=== PATIENT | male | born 1940 | race Caucasian/White ===

== ENCOUNTER 2016-07-20 11:46 | Inpatient (IN) | payer OTHER ==
[~2016-07-20] VITALS: Ht 177.8 cm; Wt 93.5 kg
[~2016-07-20 11:46] MED LIST: ACETAMINOPHEN325 M1 PO; ALEVE220 MG PO; AMBIEN5 MG PO; AMIKACIN (500 MG/2 M IV; ANTIOXIDANT VI1 EACH PO; AQUAPHOR OINTM105 GM TP; ASPIR 8181 M1 PO; ASPIR-LOW81 MG PO; AUGMENTIN875 MG PO; AZATHIOPRINE50 MG PO; BENADRYL50 MG PO; BUSPAR10 MG PO; BUSPIRONE HCL10 MG PO; Buspar PO; CALCI-CHEW500 MG PO; CALCIUM500 M4 PO; CELEXA20 MG PO; CEROVITE ADVAN1 EACH PO; CITALOPRAM HBR10 MG PO; CITALOPRAM HBR20 MG PO; COLACE100 MG PO; COUMADIN1 MG PO; COUMADIN2.5 MG PO; COUMADIN3 MG PO; COUMADIN4 MG PO; Colace PO; DAILY VITE1 EAC1 PO; DEPAKOTE250 MG PO; DEPAKOTE500 MG PO; DESYREL100 MG PO; DIAZEPAM5 MG PO; DILAUDID1 MG/ML PO; DILAUDID2 MG PO; DILAUDID4 MG PO; DUONEB 2.5-0.5 M3 ML AEROSOL; DUONEB 2.5-0.5 M3 ML IH; FERROUS SULFAT325 MG PO; FISH OIL 1,2001 EAC4 PO; FLEET MINERAL133 ML PR; FLEXERIL10 MG PO; FLOMAX0.4 MG PO; FLORASTOR250 MG PO; FUROSEMIDE20 MG PO; GABAPENTIN100 MG PO; GEODON40 MG PO; GUAIFENESI100 MG/5 M PO; HYDROCODON-ACE1 EAC7 PO; HYDROMORPHONE HC2 MG PO; IMURAN50 MG PO; IRON325 M1 PO; IRON325 MG PO; KEFLEX500 MG PO; KLOR-CON 1010 ME1 PO; KLOR-CON M2020 MEQ PO; KLOR-CON20 MEQ PO; LEVAQUIN500 MG PO; LISINOPRIL5 MG PO; LOPRESSOR25 MG PO; LORAZEPAM0.5 MG PO; MEN'S MULTI-VI1 EACH PO; METOPROLOL TART25 MG PO; MILK OF MAGN PO; MULTIVITAMIN1 EAC2 PO; MUPIROCIN22 GM TP; Milk Of Magnesia,MOM PO; NOVOLOG PE100 UNITS/ SC; NYSTATIN15 GM TP; OMEGA 3-6-91200 MG PO; OMEGA-31000 M1 PO; ONGLYZA2.5 MG PO; ORA RELIEF177 ML MM; OS-CAL 500+D T1 EAC1 PO; OYSTER SHELL W1 EACH PO; PANTOPRAZOLE SO40 MG PO; POTASSIUM CHLO20 ME1 PO; PREDNISONE10 MG PO; PREDNISONE20 MG PO; PREDNISONE5 MG PO; PREDNISONE50 MG PO; PRINIVIL5 MG PO; PROTONIX20 MG PO; PROTONIX40 MG PO; QUETIAPINE FUMA50 MG PO; ROCEPHIN1000 MG IM; SEA-OMEGA 30 C1 EACH PO; SENNA LAXATIVE1 EACH PO; SEROQUEL100 MG PO; SEROQUEL50 MG PO; SIMVASTATIN40 MG PO; SORE THROAT LO1 EAC3 MM; TRAZODONE HCL100 MG PO; TRAZODONE HCL50 MG PO; TYLENOL REGULA325 MG PO; Tums,OsCal PO; VALIUM5 MG PO; Vicodin,Norco 5/325 PO; WARFARIN SODIUM1 MG PO; ZOLPIDEM TARTRAT5 MG PO
[2016-07-20 12:36] LABS: BASE EXCESS 2.1 mEq/L (-3 to +3); BICARBONATE 28.2 mEq/L (22-26); CARBOXY HGB 1.4 % (0-5); METHEMOGLOBIN 0.5 % (0-1.5); PCO2 50 mm Hg (35-45); PO2 116 mm Hg (80-100); pH 7.36 (7.35-7.45)
[2016-07-20 12:37] LABS: COMMENTS - BLOOD GASES A+C=; DEVICE CONT NEB; O2 FLOW 8 L/MIN; SITE LRA; TOTAL RESP RATE 18 resp/min
[2016-07-20 12:38] LABS: EOSINOPHIL COUNT 0.1 K/uL (0-0.3); HEMATOCRIT 36.7 % (38.0-50.0); IMMATURE GRANULOCYTE (%) 0.5 % (0.0-0.7); IMMATURE GRANULOCYTE COUNT 0.1 K/uL; INSTRUMENT ABS NEUTROPHIL CT 7.9 K/uL; LYMPHOCYTE COUNT 0.8 K/uL (1.0-2.8); MCHC 31.1 G/DL (30.0-36.0); MCV 99.7 FL (86-99); MEAN PLAT.VOLUME 9.1 uM^3 (9.0-12.4); MONOCYTE COUNT 0.4 K/uL (0-0.8); NEUTROPHIL (%) 85.6 % (45-76); NEUTROPHIL COUNT 7.9 K/uL (1.8-6.4); PLATELET COUNT 246 K/uL (156-360); RBC DIS.WIDTH-CV 15.3 % (11.8-14.6); RBC DIS.WIDTH-SD 56.3 % (39-53); RED BLOOD COUNT 3.68 M/uL (4.00-5.50); WHITE BLOOD COUNT 9.2 K/uL (4.1-10.2)
[2016-07-20 12:46] LABS: CHLORIDE 106 mEq/L (99-109); POTASSIUM 4.9 mEq/L (3.7-5.4); SODIUM 142 mEq/L (136-147)
[2016-07-20 12:47] LABS: INTER. NORMALIZED RATIO 1.4; PROTHROMBIN TIME 14.3 (9.2-11.2); PTT 39.7 (25-32)
[2016-07-20 12:59] LABS: TROP-I INTERPRETATION NEGATIVE; TROPONIN-I < 0.01 ng/mL (0.0-0.30)
[2016-07-20 13:02] LABS: TOTAL BILIRUBIN 0.4 mg/dL (0.0-1.0)
[2016-07-20 13:11] LABS: GLUCOSE 123 mg/dL (70-99)
[2016-07-20 13:13] LABS: ANION GAP 11 MEQ/L (2-14)
[2016-07-20 13:15] LABS: ALKALINE PHOSPHATASE 39 IU/L (3-129); GFR ESTIMATE (CALCULATED) 57 mL/min/
[2016-07-20 13:16] LABS: UREA NITROGEN (BUN) 27 mg/dL (9-23)
[2016-07-20] MEDS ORDERED: DELTASONE20 M1 PO (13:48)
[2016-07-20] MEDS ORDERED: TAMIFLU75 MG PO (13:50)
[2016-07-20] MEDS ORDERED: TRESIBA FL100 UNIT/1 SC (13:52)
[2016-07-20] MEDS ORDERED: XARELTO20 MG PO (13:52)
[2016-07-20] MEDS ORDERED: GEODON60 MG PO (13:54)
[2016-07-20] MEDS ORDERED: LAMOTRIGINE25 MG PO (13:58)
[2016-07-20 14:02] LABS: LIPASE 34 U/L (1.0-51.0)
[2016-07-20] MEDS ORDERED: NOVOLOG PE100 UNITS/ SC (14:03)
[2016-07-20] MEDS ORDERED: DILAUDID2 MG PO (14:06)
[2016-07-20] MEDS ORDERED: FLEET ENEMA-AD118 ML PR (14:08)
[2016-07-20 14:36] LABS: AMPHETAMINE NEGATIVE (500 ng/mL); BARBITURATES NEGATIVE (200 ng/mL); BENZODIAZEPINES NEGATIVE (150 ng/mL); COCAINE NEGATIVE (150 ng/mL); INTERNAL CONTROLS VALID? YES; METHADONE NEGATIVE (200 ng/mL); METHAMPHETAMINE NEGATIVE (500 ng/mL); OPIATES (MORPHINE) PRESUMPTIVE POSITIVE (100 ng/mL); OXYCODONE NEGATIVE (100 ng/mL); PHENCYCLIDINE NEGATIVE (25 ng/mL); PROPOXYPHENE NEGATIVE (300 ng/mL); THC CANNABINOIDS NEGATIVE (50 ng/mL); TRICYCLIC ANTIDEPRESSANTS NEGATIVE (300 ng/mL)
[2016-07-20 14:37] LABS: ADD MEDTOX COMMENT Y
[2016-07-20 15:16] LABS: OPIATES QUANTITATIVE VALUE 0 NG/ML
[2016-07-20 15:41] LABS: ADD MIUA? YES; BILIRUBIN NEGATIVE; BLOOD SMALL; COLOR YELLOW ((YELLOW)); GLUCOSE (STRIP) NEGATIVE; KETONES NEGATIVE; LEUKOCYTES NEGATIVE; NITRITE NEGATIVE; PROTEIN (STRIP) NEGATIVE; SPECIFIC GRAVITY 1.006 (1.000-1.030); UROBILINOGEN 0.2 MG/DL (0.2-1.0)
[2016-07-20 15:47] LABS: BACTERIA NONE SEEN /HPF; EPITHELIAL CELLS NONE SEEN /HPF; MUCUS NONE SEEN /LPF; RED BLOOD CELLS 0-5 /HPF (0-5); UCUL ADDED? NO; WHITE BLOOD CELLS 0-5 /HPF (0-5)
[2016-07-20 17:43] VITALS: BP 102/53
[2016-07-20 17:44] VITALS: BP 102/53
[2016-07-20 19:00] VITALS: BP 96/54
[2016-07-20 23:15] VITALS: BP 96/52
[2016-07-21 03:15] VITALS: BP 138/65
[2016-07-21 06:00] LABS: EOSINOPHIL (%) 0 % (0-5); HEMATOCRIT 33.5 % (38.0-50.0); IMMATURE GRANULOCYTE (%) 0.5 % (0.0-0.7); INSTRUMENT ABS NEUTROPHIL CT 7.7 K/uL; LYMPHOCYTE COUNT 0.6 K/uL (1.0-2.8); MCH 31.4 PG (29.0-34.0); MCHC 31.9 G/DL (30.0-36.0); MCV 98.2 FL (86-99); MEAN PLAT.VOLUME 9.3 uM^3 (9.0-12.4); MONOCYTE (%) 2.2 % (3-12); MONOCYTE COUNT 0.2 K/uL (0-0.8); NEUTROPHIL COUNT 7.7 K/uL (1.8-6.4); PLATELET COUNT 244 K/uL (156-360); RBC DIS.WIDTH-CV 15.3 % (11.8-14.6); RBC DIS.WIDTH-SD 55.5 % (39-53); RED BLOOD COUNT 3.41 M/uL (4.00-5.50); WHITE BLOOD COUNT 8.6 K/uL (4.1-10.2)
[2016-07-21 06:29] LABS: ANION GAP 15 MEQ/L (2-14); CHLORIDE 106 MEQ/L (99-109); GFR ESTIMATE (CALCULATED) > 59 mL/min/; GLUCOSE 115 mg/dL (70-99); POTASSIUM 4.7 MEQ/L (3.7-5.4); SAMPLE HEMOLYSIS CHECK 0; SAMPLE ICTERIC CHECK 0; SAMPLE LIPEMIA CHECK 0; SODIUM 145 MEQ/L (136-147); UREA NITROGEN (BUN) 24 mg/dL (9-23)
[2016-07-21 07:00] VITALS: BP 161/89
[2016-07-21 13:36] VITALS: BP 152/84
[2016-07-21 16:05] VITALS: BP 96/53
[2016-07-21 19:14] VITALS: BP 96/54
[2016-07-21] MEDS ORDERED: DUONEB 2.5-0.5 M3 ML AEROSOL (21:11)
[2016-07-21] MEDS ORDERED: XARELTO20 MG PO (21:11)
[2016-07-21 21:19] LABS: POINT-OF-CARE METER ID UU14174216
[2016-07-21 23:00] VITALS: BP 104/53
[2016-07-21 23:34] LABS: INFLUENZA A VIRAL ANTIGEN NEGATIVE; INFLUENZA B VIRAL ANTIGEN NEGATIVE
[2016-07-22 03:35] VITALS: BP 110/64
[2016-07-22 07:00] VITALS: BP 101/57
[2016-07-22 11:26] LABS: POINT-OF-CARE METER ID UU14174216
== END 2016-07-22 13:29 | DRG 190 ==
LOC: EME 11:46 → 4EAST 16:07 → EDOF 16:07 → 4EAST 17:26
PROVIDERS: Emergency Medicine; Family Medicine
DX: J44.1 Chronic obstructive pulmonary disease with (acute) exacerbation (principal); R57.1 Hypovolemic shock; M33.20 Polymyositis, organ involvement unspecified; I69.354 Hemiplegia and hemiparesis following cerebral infarction affecting left non-dominant side; J44.0 Chronic obstructive pulmonary disease with (acute) lower respiratory infection; R41.82 Altered mental status, unspecified; I48.2 Chronic atrial fibrillation; E11.9 Type 2 diabetes mellitus without complications; Z74.01 Bed confinement status; G40.909 Epilepsy, unspecified, not intractable, without status epilepticus; F41.9 Anxiety disorder, unspecified; F32.9 Major depressive disorder, single episode, unspecified; I50.9 Heart failure, unspecified; I11.0 Hypertensive heart disease with heart failure; E78.5 Hyperlipidemia, unspecified; K21.9 Gastro-esophageal reflux disease without esophagitis; G89.4 Chronic pain syndrome; T42.6X5A Adverse effect of other antiepileptic and sedative-hypnotic drugs, initial encounter; N40.0 Benign prostatic hyperplasia without lower urinary tract symptoms; J20.9 Acute bronchitis, unspecified
CPT/HCPCS: 36600; 70450; 70551; 71010; 71250; 74230; 80048; 80053; 81003; 82140; 82803; 82948; 83605; 83690; 83880; 84484; 84999; 85025; 85610; 85730; 87040; 87502; 92610 GN; 92611 GN; 93005; 94640; 94640 76; 94644; 94799; 99202; 99281; 99285; J0696; J1100; J1815; J1940; J7030; J7050; J7500; J7512

== ENCOUNTER 2016-08-20 05:50 | Inpatient (IN) | payer OTHER ==
[~2016-08-20] VITALS: Ht 177.8 cm; Wt 96.0 kg
[2016-08-20] VITALS (14 sets, daily range): BP systolic 71–146; BP diastolic 50–67
[~2016-08-20 05:50] MED LIST changes: +DELTASONE20 M1 PO; +FLEET ENEMA-AD118 ML PR; +GEODON60 MG PO; +LAMOTRIGINE25 MG PO; +TAMIFLU75 MG PO; +TRESIBA FL100 UNIT/1 SC; +XARELTO20 MG PO
[2016-08-20 06:35] LABS: EOSINOPHIL (%) 1.5 % (0-5); EOSINOPHIL COUNT 0.1 K/uL (0-0.3); HEMATOCRIT 21.8 % (38.0-50.0); IMMATURE GRANULOCYTE COUNT 0.4 K/uL; INSTRUMENT ABS NEUTROPHIL CT 6.4 K/uL; LYMPHOCYTE COUNT 1.2 K/uL (1.0-2.8); MCH 31.5 PG (29.0-34.0); MCHC 31.7 G/DL (30.0-36.0); MCV 99.5 FL (86-99); MEAN PLAT.VOLUME 10.3 uM^3 (9.0-12.4); MONOCYTE (%) 6.6 % (3-12); MONOCYTE COUNT 0.6 K/uL (0-0.8); NEUTROPHIL (%) 73.6 % (45-76); NEUTROPHIL COUNT 6.4 K/uL (1.8-6.4); NRBC (%) 0.7 /100 WBC (0-0); PLATELET COUNT 271 K/uL (156-360); RBC DIS.WIDTH-SD 60.6 % (39-53); RED BLOOD COUNT 2.19 M/uL (4.00-5.50); WHITE BLOOD COUNT 8.7 K/uL (4.1-10.2)
[2016-08-20 06:44] LABS: CHLORIDE 104 mEq/L (99-109); POTASSIUM 5.2 mEq/L (3.7-5.4); SODIUM 138 mEq/L (136-147)
[2016-08-20 06:46] LABS: GLUCOSE 114 mg/dL (70-99)
[2016-08-20 06:47] LABS: ANION GAP 16 MEQ/L (2-14)
[2016-08-20 06:49] LABS: GFR ESTIMATE (CALCULATED) > 59 mL/min/
[2016-08-20 06:50] LABS: UREA NITROGEN (BUN) 45 mg/dL (9-23)
[2016-08-20 08:37] LABS: INTER. NORMALIZED RATIO 1.2; PTT 27.4 (25-32)
[2016-08-20] MEDS ORDERED: LAMICTAL100 MG PO (12:15)
[2016-08-20 17:28] LABS: POINT-OF-CARE METER ID UU13113725
[2016-08-20 17:56] LABS: HEMATOCRIT 26.4 % (38.0-50.0)
[2016-08-20 20:19] LABS: POINT-OF-CARE METER ID UU13113725
[2016-08-20 23:16] LABS: POINT-OF-CARE METER ID UU13113725
[2016-08-21 00:38] LABS: HEMATOCRIT 26.1 % (38.0-50.0); MCV 91.6 FL (86-99)
[2016-08-21 02:34] VITALS: BP 102/59
[2016-08-21 05:19] LABS: POINT-OF-CARE METER ID UU13113725
[2016-08-21 06:00] LABS: ANION GAP 8 MEQ/L (2-14); CHLORIDE 102 MEQ/L (99-109); GFR ESTIMATE (CALCULATED) > 59 mL/min/; GLUCOSE 105 mg/dL (70-99); SAMPLE HEMOLYSIS CHECK 0; SAMPLE ICTERIC CHECK 0; SAMPLE LIPEMIA CHECK 0; SODIUM 133 MEQ/L (136-147); UREA NITROGEN (BUN) 31 mg/dL (9-23)
[2016-08-21 06:02] LABS: POTASSIUM 3.9 MEQ/L (3.7-5.4)
[2016-08-21 06:19] LABS: EOSINOPHIL (%) 1.8 % (0-5); EOSINOPHIL COUNT 0.1 K/uL (0-0.3); HEMATOCRIT 24.7 % (38.0-50.0); IMMATURE GRANULOCYTE (%) 3.8 % (0.0-0.7); IMMATURE GRANULOCYTE COUNT 0.2 K/uL; INSTRUMENT ABS NEUTROPHIL CT 3.9 K/uL; LYMPHOCYTE COUNT 0.9 K/uL (1.0-2.8); MCH 30.6 PG (29.0-34.0); MCHC 32.8 G/DL (30.0-36.0); MCV 93.2 FL (86-99); MONOCYTE (%) 8.6 % (3-12); MONOCYTE COUNT 0.5 K/uL (0-0.8); NEUTROPHIL COUNT 3.9 K/uL (1.8-6.4); NRBC (%) 1.8 /100 WBC (0-0); RBC DIS.WIDTH-CV 17.6 % (11.8-14.6); RBC DIS.WIDTH-SD 58.4 % (39-53)
[2016-08-21 06:25] LABS: RED BLOOD COUNT 2.65 M/uL (4.00-5.50); WHITE BLOOD COUNT 5.6 K/uL (4.1-10.2)
[2016-08-21 07:44] LABS: PLATELET COUNT UNABLE TO REPORT K/uL (156-360)
[2016-08-21 08:35] VITALS: BP 158/65
[2016-08-21 11:40] LABS: POINT-OF-CARE METER ID UU13113725
[2016-08-21 12:31] VITALS: BP 113/56
[2016-08-21 16:43] LABS: POINT-OF-CARE METER ID UU13113725
[2016-08-21 17:38] VITALS: BP 115/62
[2016-08-21 22:46] VITALS: BP 84/51
[2016-08-22] VITALS (12 sets, daily range): BP systolic 85–125; BP diastolic 45–72
[2016-08-22 00:59] LABS: POINT-OF-CARE METER ID UU13113725
[2016-08-22 05:44] LABS: POINT-OF-CARE METER ID UU13113725
[2016-08-22 06:31] LABS: EOSINOPHIL (%) 0.9 % (0-5); EOSINOPHIL COUNT 0.1 K/uL (0-0.3); HEMATOCRIT 25.3 % (38.0-50.0); IMMATURE GRANULOCYTE (%) 2.7 % (0.0-0.7); IMMATURE GRANULOCYTE COUNT 0.2 K/uL; INSTRUMENT ABS NEUTROPHIL CT 4.1 K/uL; LYMPHOCYTE COUNT 0.7 K/uL (1.0-2.8); MCH 30.6 PG (29.0-34.0); MCV 95.5 FL (86-99); MEAN PLAT.VOLUME 9.5 uM^3 (9.0-12.4); MONOCYTE (%) 8.2 % (3-12); MONOCYTE COUNT 0.5 K/uL (0-0.8); NEUTROPHIL (%) 75.9 % (45-76); NEUTROPHIL COUNT 4.1 K/uL (1.8-6.4); NRBC (%) 0.4 /100 WBC (0-0); PLATELET COUNT 219 K/uL (156-360); RBC DIS.WIDTH-CV 17.4 % (11.8-14.6); RBC DIS.WIDTH-SD 59.4 % (39-53); RED BLOOD COUNT 2.65 M/uL (4.00-5.50); WHITE BLOOD COUNT 5.5 K/uL (4.1-10.2)
[2016-08-22 06:54] LABS: ANION GAP 13 MEQ/L (2-14); CHLORIDE 104 MEQ/L (99-109); GFR ESTIMATE (CALCULATED) > 59 mL/min/; GLUCOSE 98 mg/dL (70-99); POTASSIUM 4.1 MEQ/L (3.7-5.4); SAMPLE HEMOLYSIS CHECK 0; SAMPLE ICTERIC CHECK 0; SAMPLE LIPEMIA CHECK 0; SODIUM 139 MEQ/L (136-147); UREA NITROGEN (BUN) 20 mg/dL (9-23)
[2016-08-22 09:23] LABS: POINT-OF-CARE METER ID UU13113725
[2016-08-22 18:20] LABS: POINT-OF-CARE METER ID UU13113725
[2016-08-23 05:51] LABS: POINT-OF-CARE METER ID UU13113725
[2016-08-23 06:57] LABS: ALKALINE PHOSPHATASE 32 IU/L (3-129); ANION GAP 8 MEQ/L (2-14); CHLORIDE 105 MEQ/L (99-109); GFR ESTIMATE (CALCULATED) > 59 mL/min/; GLUCOSE 107 mg/dL (70-99); SAMPLE HEMOLYSIS CHECK 3; SAMPLE ICTERIC CHECK 0; SAMPLE LIPEMIA CHECK 0; SODIUM 137 MEQ/L (136-147); TOTAL BILIRUBIN 0.7 MG/DL (0.0-1.0); UREA NITROGEN (BUN) 14 mg/dL (9-23)
[2016-08-23 07:01] VITALS: BP 94/52
[2016-08-23 08:10] LABS: HEMATOCRIT 31.4 % (38.0-50.0); MCH 30.2 PG (29.0-34.0); MCHC 32.8 G/DL (30.0-36.0); MCV 92.1 FL (86-99); MEAN PLAT.VOLUME 8.9 uM^3 (9.0-12.4); PLATELET COUNT 188 K/uL (156-360); RBC DIS.WIDTH-CV 16.8 % (11.8-14.6); RBC DIS.WIDTH-SD 56.1 % (39-53)
[2016-08-23 08:22] LABS: RED BLOOD COUNT 3.41 M/uL (4.00-5.50)
[2016-08-23 11:40] LABS: POINT-OF-CARE METER ID UU13113694
[2016-08-23 12:41] LABS: POINT-OF-CARE METER ID UU13113819
[2016-08-23 15:36] VITALS: BP 106/52
[2016-08-23 18:41] LABS: POINT-OF-CARE METER ID UU13113725
[2016-08-23 20:38] LABS: POINT-OF-CARE METER ID UU13113725
[2016-08-23 23:07] VITALS: BP 125/61
[2016-08-24 06:10] LABS: POINT-OF-CARE METER ID UU13113725
[2016-08-24 07:24] VITALS: BP 100/51
[2016-08-24 11:50] LABS: POINT-OF-CARE METER ID UU13113725
[2016-08-24] MEDS ORDERED: XARELTO20 MG PO (13:56)
[2016-08-24] MEDS ORDERED: TYLENOL REGULA325 MG PO (13:57)
[2016-08-24] MEDS ORDERED: PROTONIX20 MG PO (13:58)
[2016-08-24] MEDS ORDERED: NOVOLOG PE100 UNITS/ SC (13:59)
[2016-08-24] MEDS ORDERED: Zeasorb Antifungal T TP (13:59)
[2016-08-24] MEDS ORDERED: LIDOCAINE700 MG TD (14:00)
[2016-08-24 17:01] VITALS: BP 140/68
== END 2016-08-24 17:32 | DRG 982 ==
LOC: EME → EDBD 05:50 → EDOF 09:20 → 5EAST 09:20 → EDOF 09:27 → 5EAST 10:43
PROVIDERS: Emergency Medicine; Family Medicine; Internal Medicine; Internal Medicine Gastroenterology
PROC: 06H Lower Veins, Insertion (ICD-10-PCS; principal; 2016-08-20)
PROC: 30233N1 Transfusion of Nonautologous Red Blood Cells into Peripheral Vein, Percutaneous Approach (ICD-10-PCS; principal; 2016-08-20)
PROC: 02HV33Z Insertion of Infusion Device into Superior Vena Cava, Percutaneous Approach (ICD-10-PCS; 2016-08-22)
PROC: 0DJ08ZZ Inspection of Upper Intestinal Tract, Via Natural or Artificial Opening Endoscopic (ICD-10-PCS; 2016-08-23)
DX: K92.2 Gastrointestinal hemorrhage, unspecified (principal); I48.2 Chronic atrial fibrillation; Z79.01 Long term (current) use of anticoagulants; Z74.01 Bed confinement status; G89.4 Chronic pain syndrome; G82.20 Paraplegia, unspecified; J44.9 Chronic obstructive pulmonary disease, unspecified; Y92.122 Bedroom in nursing home as the place of occurrence of the external cause; Y93.9 Activity, unspecified; S43.005A Unspecified dislocation of left shoulder joint, initial encounter; K21.9 Gastro-esophageal reflux disease without esophagitis; E11.9 Type 2 diabetes mellitus without complications; W06.XXXA Fall from bed, initial encounter; I11.0 Hypertensive heart disease with heart failure; I50.9 Heart failure, unspecified; Z96.649 Presence of unspecified artificial hip joint; F03.90 Unspecified dementia, unspecified severity, without behavioral disturbance, psychotic disturbance, mood disturbance, and anxiety; E78.5 Hyperlipidemia, unspecified; E66.9 Obesity, unspecified; Z68.30 Body mass index [BMI] 30.0-30.9, adult; F32.9 Major depressive disorder, single episode, unspecified; F41.9 Anxiety disorder, unspecified; M81.0 Age-related osteoporosis without current pathological fracture; I95.9 Hypotension, unspecified; D50.0 Iron deficiency anemia secondary to blood loss (chronic)
CPT/HCPCS: 71010; 73020; 80048; 80053; 82948; 85014; 85018; 85025; 85025 91; 85027; 85610; 85730; 86900; 86901; 86920; 94640; 94640 76; 94760; 94799; 99202; 99281; 99285; C9113; J1815; J1940; J7030; J7050; J7500; J7512; P9016

== ENCOUNTER 2016-09-01 14:19 | Emergency (ER) | payer OTHER ==
[~2016-09-01] VITALS: Ht 177.8 cm; Wt 91.8 kg
[~2016-09-01 14:19] MED LIST changes: +LAMICTAL100 MG PO; +LIDOCAINE700 MG TD; +Zeasorb Antifungal T TP
[2016-09-01 15:45] LABS: HEMATOCRIT 35.5 % (38.0-50.0); MCH 29.7 PG (29.0-34.0); MCHC 32.1 G/DL (30.0-36.0); MCV 92.4 FL (86-99); RBC DIS.WIDTH-CV 15.5 % (11.8-14.6); RBC DIS.WIDTH-SD 52.3 % (39-53); RED BLOOD COUNT 3.84 M/uL (4.00-5.50)
[2016-09-01 15:52] LABS: CHLORIDE 102 mEq/L (99-109); POTASSIUM 4.2 mEq/L (3.7-5.4); SODIUM 139 mEq/L (136-147)
[2016-09-01 15:53] LABS: PLATELET COUNT 271 K/uL (156-360); WHITE BLOOD COUNT 8.7 K/uL (4.1-10.2)
[2016-09-01 15:54] LABS: GLUCOSE 149 mg/dL (70-99)
[2016-09-01 15:56] LABS: ANION GAP 12 MEQ/L (2-14)
[2016-09-01 15:58] LABS: GFR ESTIMATE (CALCULATED) > 59 mL/min/
[2016-09-01 15:59] LABS: UREA NITROGEN (BUN) 21 mg/dL (9-23)
[2016-09-01 19:13] LABS: ADD MIUA? NO; BILIRUBIN NEGATIVE; BLOOD NEGATIVE; COLOR YELLOW ((YELLOW)); GLUCOSE (STRIP) NEGATIVE; KETONES 5; LEUKOCYTES NEGATIVE; NITRITE NEGATIVE; PROTEIN (STRIP) NEGATIVE; SPECIFIC GRAVITY 1.011 (1.000-1.030); UCUL ADDED? NO; UROBILINOGEN 0.2 MG/DL (0.2-1.0)
[2016-09-01 21:18] VITALS: BP 105/68
== END 2016-09-01 21:24 ==
LOC: EME 14:19
PROVIDERS: Emergency Medicine
DX: R45.1 Restlessness and agitation (principal); F03.90 Unspecified dementia, unspecified severity, without behavioral disturbance, psychotic disturbance, mood disturbance, and anxiety; I11.0 Hypertensive heart disease with heart failure; I50.9 Heart failure, unspecified; K21.9 Gastro-esophageal reflux disease without esophagitis; Z86.73 Personal history of transient ischemic attack (TIA), and cerebral infarction without residual deficits
CPT/HCPCS: 70450; 80048; 81003; 85027; 99281; 99284; J1630; J2060

== ENCOUNTER 2016-09-18 14:55 | Emergency (ER) | payer OTHER ==
[~2016-09-18] VITALS: Ht 165.1 cm; Wt 92.5 kg
[2016-09-18 16:15] LABS: EOSINOPHIL (%) 0.1 % (0-5); HEMATOCRIT 32.7 % (38.0-50.0); IMMATURE GRANULOCYTE (%) 0.9 % (0.0-0.7); IMMATURE GRANULOCYTE COUNT 0.1 K/uL; INSTRUMENT ABS NEUTROPHIL CT 7.2 K/uL; LYMPHOCYTE COUNT 0.4 K/uL (1.0-2.8); MCH 29.6 PG (29.0-34.0); MCHC 30.9 G/DL (30.0-36.0); MCV 95.9 FL (86-99); MEAN PLAT.VOLUME 8.6 uM^3 (9.0-12.4); MONOCYTE (%) 3.4 % (3-12); MONOCYTE COUNT 0.3 K/uL (0-0.8); NEUTROPHIL (%) 90.6 % (45-76); NEUTROPHIL COUNT 7.2 K/uL (1.8-6.4); PLATELET COUNT 228 K/uL (156-360); RBC DIS.WIDTH-CV 15.8 % (11.8-14.6); RBC DIS.WIDTH-SD 54.7 % (39-53); RED BLOOD COUNT 3.41 M/uL (4.00-5.50)
[2016-09-18 16:25] LABS: INTER. NORMALIZED RATIO 1.5; PROTHROMBIN TIME 15.1 (9.2-11.2)
[2016-09-18 16:26] LABS: CHLORIDE 101 mEq/L (99-109); SODIUM 138 mEq/L (136-147)
[2016-09-18 16:28] LABS: GLUCOSE 135 mg/dL (70-99)
[2016-09-18 16:29] LABS: ANION GAP 9 MEQ/L (2-14)
[2016-09-18 16:32] LABS: GFR ESTIMATE (CALCULATED) 27 mL/min/; PTT 43.2 (25-32)
[2016-09-18 16:33] LABS: UREA NITROGEN (BUN) 38 mg/dL (9-23)
[2016-09-18 16:35] LABS: TROP-I INTERPRETATION NEGATIVE; TROPONIN-I < 0.01 ng/mL (0.0-0.30)
[2016-09-18 17:20] LABS: ADD MIUA? NO; BILIRUBIN NEGATIVE; BLOOD NEGATIVE; COLOR YELLOW ((YELLOW)); GLUCOSE (STRIP) NEGATIVE; KETONES NEGATIVE; LEUKOCYTES NEGATIVE; NITRITE NEGATIVE; PROTEIN (STRIP) NEGATIVE; SPECIFIC GRAVITY 1.009 (1.000-1.030); UCUL ADDED? NO; UROBILINOGEN 0.2 MG/DL (0.2-1.0)
[2016-09-18 20:00] VITALS: BP 108/71
== END 2016-09-18 20:19 ==
LOC: EME 14:55
PROVIDERS: Emergency Medicine
DX: F03.90 Unspecified dementia, unspecified severity, without behavioral disturbance, psychotic disturbance, mood disturbance, and anxiety (principal); R05 Cough; I10 Essential (primary) hypertension; K21.9 Gastro-esophageal reflux disease without esophagitis; Z86.73 Personal history of transient ischemic attack (TIA), and cerebral infarction without residual deficits
CPT/HCPCS: 70450; 71010; 80048; 81003; 84484; 85025; 85610; 85730; 87040; 93005; 99281; 99285

== ENCOUNTER 2017-01-28 07:04 | Emergency (ER) | payer OTHER ==
[~2017-01-28] VITALS: Ht 177.8 cm; Wt 85.0 kg
[2017-01-28 07:52] LABS: HEMATOCRIT 35.7 % (38.0-50.0); MCV 89.9 FL (86-99); MEAN PLAT.VOLUME 9.5 uM^3 (9.0-12.4); NRBC (%) 0.2 /100 WBC (0-0); PLATELET COUNT 262 K/uL (156-360); RBC DIS.WIDTH-SD 55.8 % (39-53); RED BLOOD COUNT 3.97 M/uL (4.00-5.50)
[2017-01-28 07:57] LABS: INTER. NORMALIZED RATIO 1.5; PROTHROMBIN TIME 16.2 SEC (10.2-12.9)
[2017-01-28 08:23] LABS: ANION GAP 11 MEQ/L (2-14); CHLORIDE 101 MEQ/L (99-109); POTASSIUM 3.3 MEQ/L (3.7-5.4); SAMPLE HEMOLYSIS CHECK 0; SAMPLE ICTERIC CHECK 0; SAMPLE LIPEMIA CHECK 0; SODIUM 142 MEQ/L (136-147)
[2017-01-28 08:28] LABS: GFR ESTIMATE (CALCULATED) > 59 mL/min/; GLUCOSE 153 mg/dL (70-99); UREA NITROGEN (BUN) 13 mg/dL (9-23)
[2017-01-28] MEDS ORDERED: KEFLEX500 MG PO (10:31)
[2017-01-28 11:36] VITALS: BP 118/80
== END 2017-01-28 11:36 | disposition home or self-care (01) ==
LOC: EME 07:04
PROVIDERS: Nurse Practitioner Family
PROC: 0HQ1XZZ Repair Face Skin, External Approach (ICD-10-PCS; principal; 2017-01-28)
DX: S01.81XA Laceration without foreign body of other part of head, initial encounter (principal); S01.21XA Laceration without foreign body of nose, initial encounter; S02.2XXA Fracture of nasal bones, initial encounter for closed fracture; M54.2 Cervicalgia; W06.XXXA Fall from bed, initial encounter; Y92.129 Unspecified place in nursing home as the place of occurrence of the external cause; Z79.01 Long term (current) use of anticoagulants; I11.0 Hypertensive heart disease with heart failure; I50.9 Heart failure, unspecified; F03.90 Unspecified dementia, unspecified severity, without behavioral disturbance, psychotic disturbance, mood disturbance, and anxiety; J45.909 Unspecified asthma, uncomplicated; F32.9 Major depressive disorder, single episode, unspecified; K21.9 Gastro-esophageal reflux disease without esophagitis; F41.9 Anxiety disorder, unspecified; Z86.73 Personal history of transient ischemic attack (TIA), and cerebral infarction without residual deficits
CPT/HCPCS: 70450; 70486; 71260; 72125; 72129; 72132; 74177; 80048; 85027; 85610; 99281; 99284; J2405; J7030

== ENCOUNTER 2017-07-10 14:32 | Emergency (ER) | payer OTHER ==
[~2017-07-10] VITALS: Ht 180.3 cm; Wt 89.7 kg
[2017-07-10] MEDS ORDERED: FLEXERIL10 MG PO (17:08)
[2017-07-10] MEDS ORDERED: NORCO 5/3251 TABLET PO (17:13)
[2017-07-10 18:08] VITALS: BP 121/78
== END 2017-07-10 18:21 | disposition home or self-care (01) ==
LOC: EME 14:32
DX: M54.12 Radiculopathy, cervical region (principal); I50.9 Heart failure, unspecified; I11.0 Hypertensive heart disease with heart failure; N40.0 Benign prostatic hyperplasia without lower urinary tract symptoms; M81.0 Age-related osteoporosis without current pathological fracture; K21.9 Gastro-esophageal reflux disease without esophagitis; J45.909 Unspecified asthma, uncomplicated; F41.9 Anxiety disorder, unspecified; F32.9 Major depressive disorder, single episode, unspecified; F03.90 Unspecified dementia, unspecified severity, without behavioral disturbance, psychotic disturbance, mood disturbance, and anxiety; I69.354 Hemiplegia and hemiparesis following cerebral infarction affecting left non-dominant side; Z96.643 Presence of artificial hip joint, bilateral; Z79.4 Long term (current) use of insulin; Z79.891 Long term (current) use of opiate analgesic
CPT/HCPCS: 72125; 99281; 99284; J2270

== ENCOUNTER 2017-07-18 06:19 | Inpatient (IN) | payer OTHER ==
[~2017-07-18] VITALS: Ht 182.9 cm; Wt 88.0 kg
[~2017-07-18 06:19] MED LIST changes: +FUROSEMIDE40 MG PO; +KLOR-CON M1010 MEQ PO; -KLOR-CON M2020 MEQ PO; -LAMICTAL100 MG PO; +LAMICTAL25 MG PO; +NORCO 5/3251 TABLET PO
[2017-07-18 07:04] LABS: BASE EXCESS -10.1 mEq/L (-3 to +3); CARBOXY HGB 1.4 % (0-5); METHEMOGLOBIN 0.7 % (0-1.5)
[2017-07-18 07:05] LABS: BICARBONATE 15.4 mEq/L (22-26); COMMENTS - BLOOD GASES A+C+; DEVICE 840; FI02 100 %; MECHANICAL RATE 18 resp/min; MODE A/C; PCO2 32 mm Hg (35-45); PEEP 5 CM/H20; PO2 182 mm Hg (80-100); SITE RR; TIDAL VOLUME 500 ML; TOTAL RESP RATE 19 resp/min
[2017-07-18 07:06] LABS: pH 7.29 (7.35-7.45)
[2017-07-18 07:22] LABS: HEMATOCRIT 39.3 % (38.0-50.0); HEMOGLOBIN 12.5 G/DL (12.5-16.6); MCH 30.9 PG (29.0-34.0); MCHC 31.8 G/DL (30.0-36.0); RBC DIS.WIDTH-CV 16.8 % (11.8-14.6); RBC DIS.WIDTH-SD 60.2 % (39-53); RED BLOOD COUNT 4.05 M/uL (4.00-5.50); WHITE BLOOD COUNT 9.7 K/uL (4.1-10.2)
[2017-07-18 07:26] LABS: INTER. NORMALIZED RATIO 2.2
[2017-07-18 08:03] LABS: CHLORIDE 101 MEQ/L (99-109); CREATININE 1.5 MG/DL (0.6-1.3); GFR ESTIMATE (CALCULATED) 48 mL/min/ (58.99-99999); GLUCOSE 159 mg/dL (70-99); POTASSIUM 4.7 MEQ/L (3.7-5.4); SODIUM 140 MEQ/L (136-147); UREA NITROGEN (BUN) 22 mg/dL (9-23)
[2017-07-18 08:05] LABS: ABS NEUTROPHIL COUNT 8.2; ATYPICAL LYMPHOCYTE 0.9 %; BAND NEUTROPHILS 22.6 % (0-8.0); BASOPHILS 0.9 %; EOSINOPHIL ABS CT 0; LYMPHOCYTES 5.2 % (15.0-45.0); METAMYELOCYTES 4.3 %; MONOCYTES 3.5 % (0-9.0); MYELOCYTES 0.9 %; NUCLEATED RBC'S 1.7; PLAT.SUFFICIENCY ADEQUATE; PLATELET CLUMPS PRESENT - PLATELET COUNT APPEARS ADQ.; PLATELET COUNT UNABLE TO REPORT K/uL (156-360); SEG.NEUTROPHILS 61.7 % (46.0-76.0); SMUDGE CELLS 2.6
[2017-07-18 08:10] LABS: TROP-I INTERPRETATION POSITIVE; TROPONIN-I 0.74 ng/mL (0.0-0.30)
[2017-07-18] MEDS ORDERED: ASPIR-LOW81 MG PO (08:29)
[2017-07-18] MEDS ORDERED: ATORVASTATIN CA10 MG PO (08:29)
[2017-07-18] MEDS ORDERED: FERROUS SULFAT325 MG PO (08:30)
[2017-07-18] MEDS ORDERED: LEVEMIR FL100 UNIT/1 SC (08:31)
[2017-07-18] MEDS ORDERED: PANTOPRAZOLE SO20 MG PO (08:46)
[2017-07-18] MEDS ORDERED: XARELTO20 MG PO (08:47)
[2017-07-18] MEDS ORDERED: SENOKOT,SENN1 TABLET PO (08:47)
[2017-07-18] MEDS ORDERED: LORAZEPAM0.5 MG PO (08:49)
[2017-07-18] MEDS ORDERED: DUONEB 2.5-0.5 M3 ML AEROSOL (08:52)
[2017-07-18] MEDS ORDERED: NOVOLOG PE100 UNITS/ SC (08:52)
[2017-07-18] MEDS ORDERED: GLUCO BURST37.5 GM PO (08:54)
[2017-07-18] MEDS ORDERED: NORCO 5/3251 TABLET PO (08:55)
[2017-07-18] MEDS ORDERED: REFRESH TEARS15 ML BOTH EYES (08:57)
[2017-07-18] MEDS ORDERED: TYLENOL REGULA325 MG PO (08:58)
[2017-07-18 10:15] VITALS: BP 85/33
[2017-07-18 10:31] VITALS: BP 85/35
[2017-07-18 11:45] VITALS: BP 71/49
[2017-07-18 12:40] LABS: BASE EXCESS -5.7 mEq/L (-3 to +3); BICARBONATE 17.5 mEq/L (22-26); CARBOXY HGB 1.3 % (0-5); METHEMOGLOBIN 1.3 % (0-1.5)
[2017-07-18 12:41] LABS: COMMENTS - BLOOD GASES C+; DEVICE VENT; FI02 100 %; MECHANICAL RATE 18 resp/min; MODE AC; PCO2 27 mm Hg (35-45); PO2 78 mm Hg (80-100); SITE FEMORAL ALINE; TOTAL RESP RATE 22 resp/min; pH 7.42 (7.35-7.45)
[2017-07-18 12:42] LABS: PEEP 5 CM/H20; TIDAL VOLUME 500 ML
[2017-07-18 13:20] LABS: INTER. NORMALIZED RATIO 2.3
[2017-07-18 13:22] LABS: PTT 33.7 SEC (25-37)
[2017-07-18 13:50] LABS: ALBUMIN 1.8 G/DL (3.2-4.8); ALKALINE PHOSPHATASE 59 IU/L (3-129); ALT (GPT) 94 IU/L (3-49); AST (GOT) 182 IU/L (2-34); DIRECT BILIRUBIN 0.2 mg/dL (0.0-0.3); TOTAL BILIRUBIN 0.5 MG/DL (0.0-1.0); TOTAL PROTEIN 3.6 G/DL (6.4-8.3)
[2017-07-18 15:33] LABS: BASE EXCESS -16.7 mEq/L (-3 to +3); CARBOXY HGB 1.4 % (0-5); PO2 64 mm Hg (80-100)
[2017-07-18 15:34] LABS: BICARBONATE 12.7 mEq/L (22-26); PCO2 43 mm Hg (35-45); pH 7.08 (7.35-7.45)
[2017-07-18 16:03] LABS: BASE EXCESS -5.3 mEq/L (-3 to +3); CARBOXY HGB 1.2 % (0-5); PO2 57 mm Hg (80-100)
[2017-07-18 16:04] LABS: PCO2 37 mm Hg (35-45); pH 7.34 (7.35-7.45)
[2017-07-18 16:34] LABS: CREATININE 1.4 MG/DL (0.6-1.3); GFR ESTIMATE (CALCULATED) 52 mL/min/ (58.99-99999); POTASSIUM 4.6 MEQ/L (3.7-5.4); UREA NITROGEN (BUN) 23 mg/dL (9-23)
[2017-07-18 16:35] LABS: ALBUMIN 1.5 G/DL (3.2-4.8); ALKALINE PHOSPHATASE 42 IU/L (3-129); ALT (GPT) 128 IU/L (3-49); AST (GOT) 222 IU/L (2-34); TOTAL BILIRUBIN 0.5 MG/DL (0.0-1.0); TOTAL PROTEIN 3.1 G/DL (6.4-8.3)
[2017-07-18 16:42] LABS: GLUCOSE 63 mg/dL (70-99)
[2017-07-18 16:43] LABS: CHLORIDE 112 MEQ/L (99-109); SODIUM 150 MEQ/L (136-147)
[2017-07-18 16:58] LABS: ABS NEUTROPHIL COUNT 2.2; EOSINOPHIL ABS CT 0; EOSINOPHILS 0.9 % (0-5.0); HEMATOCRIT 24.5 % (38.0-50.0); HEMOGLOBIN 7.9 G/DL (12.5-16.6); LYMPHOCYTES 15.2 % (15.0-45.0); MCH 30.7 PG (29.0-34.0); MCHC 32.2 G/DL (30.0-36.0); MCV 95.3 FL (86-99); METAMYELOCYTES 0.9 %; MONOCYTES 2.7 % (0-9.0); MYELOCYTES 14.3 %; NRBC (%) 1.7 /100 WBC (0-0); NUCLEATED RBC'S 2.7; PLAT.SUFFICIENCY ADEQUATE; PLATELET COUNT UNABLE TO REPORT K/uL (156-360); RBC DIS.WIDTH-CV 17.2 % (11.8-14.6); RBC DIS.WIDTH-SD 59.3 % (39-53); RED BLOOD COUNT 2.57 M/uL (4.00-5.50); SMUDGE CELLS 4.5; WHITE BLOOD COUNT 3.4 K/uL (4.1-10.2)
[2017-07-18 16:59] LABS: BAND NEUTROPHILS 62.5 % (0-8.0); SEG.NEUTROPHILS 3.5 % (46.0-76.0)
== END 2017-07-18 16:46 | DRG 853 ==
LOC: EME 06:19 → EDOF 08:05 → ENRESERV 08:09 → 4WEST 09:53
PROVIDERS: Anesthesiology; Emergency Medicine; Internal Medicine Critical Care Medicine
PROC: 5A2204Z Restoration of Cardiac Rhythm, Single (ICD-10-PCS; principal; 2017-07-18)
PROC: 04HY32Z Insertion of Monitoring Device into Lower Artery, Percutaneous Approach (ICD-10-PCS; principal; 2017-07-18)
PROC: B546ZZA Ultrasonography of Right Subclavian Vein, Guidance (ICD-10-PCS; principal; 2017-07-18)
PROC: 0DTF0ZZ Resection of Right Large Intestine, Open Approach (ICD-10-PCS; 2017-07-18)
PROC: 5A1945Z Respiratory Ventilation, 24-96 Consecutive Hours (ICD-10-PCS; 2017-07-18)
PROC: 0BH17EZ Insertion of Endotracheal Airway into Trachea, Via Natural or Artificial Opening (ICD-10-PCS; 2017-07-18)
PROC: 05H533Z Insertion of Infusion Device into Right Subclavian Vein, Percutaneous Approach (ICD-10-PCS; 2017-07-18)
DX: A41.9 Sepsis, unspecified organism (principal); J96.00 Acute respiratory failure, unspecified whether with hypoxia or hypercapnia; T81.10XA Postprocedural shock unspecified, initial encounter; K55.059 Acute (reversible) ischemia of intestine, part and extent unspecified; I11.0 Hypertensive heart disease with heart failure; I48.2 Chronic atrial fibrillation; I25.10 Atherosclerotic heart disease of native coronary artery without angina pectoris; E87.2 Acidosis; J45.909 Unspecified asthma, uncomplicated; I70.0 Atherosclerosis of aorta; E78.5 Hyperlipidemia, unspecified; J98.11 Atelectasis; E11.9 Type 2 diabetes mellitus without complications; I50.9 Heart failure, unspecified; F03.90 Unspecified dementia, unspecified severity, without behavioral disturbance, psychotic disturbance, mood disturbance, and anxiety; F39 Unspecified mood [affective] disorder; K21.9 Gastro-esophageal reflux disease without esophagitis; I77.810 Thoracic aortic ectasia; K81.9 Cholecystitis, unspecified; I47.1 Supraventricular tachycardia; M81.0 Age-related osteoporosis without current pathological fracture; N40.0 Benign prostatic hyperplasia without lower urinary tract symptoms; Z86.73 Personal history of transient ischemic attack (TIA), and cerebral infarction without residual deficits
CPT/HCPCS: 36600; 71045; 71275; 74174; 80047; 80048; 80053; 80076; 81003; 82803; 83605; 83880; 84484; 85025; 85025 91; 85610; 85730; 86850; 86900; 86901; 86920; 87040; 87070; 87077; 87185; 87186; 87205; 87641; 87801; 88307; 93005; 93306; 94002; 94003; 99281; 99285; C1751; C9113; J0330; J2250; J2543; J3370; J7030; J7050; P9017; P9045